=== PATIENT | female | born 1990 | race American Indian/Alaskan Native ===

== ENCOUNTER 2018-09-14 23:59 | Day surgery (SDC) | payer SELFPAY ==
[2018-09-15] MEDS ORDERED: HYDROmorphone 1 MG/ML Syringe IM ONE (00:43)
[2018-09-15] MEDS ORDERED: Sodium Chloride 0.9% 10 ML Syringe FLUSH PRN (00:44)
[2018-09-15] MEDS ORDERED: HYDROmorphone 1 MG/ML Syringe IVPUSH ONE ×3 (00:51→07:26)
[2018-09-15] MEDS ORDERED: Lidocaine 1% 50 ML MDV INJECT STA (02:24)
[2018-09-15] MEDS ORDERED: Lidocaine 1% with EPINEPHrine 1:100,000 20 ML MDV INJECT ONE (04:06)
[2018-09-15] MEDS ORDERED: Metoclopramide 10 MG/2 ML SDV IVPUSH ONE (07:26)
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
[2018-09-15] MEDS: Lactated Ringers 1,000 ML IV SCH ×2 (07:38→11:51)
[2018-09-15] MEDS ORDERED: Propofol 200 MG/20 ML SDV ONE (09:02)
[2018-09-15] MEDS ORDERED: Ondansetron 4 MG/2 ML SDV ONE (09:02)
[2018-09-15] MEDS ORDERED: Midazolam 1 MG/ML 2 ML SDV ONE (09:02)
[2018-09-15] MEDS ORDERED: Lidocaine 1% 4 ML ONE (09:02)
[2018-09-15] MEDS ORDERED: fentaNYL 250 MCG/5 ML SDV ONE (09:02)
[2018-09-15] MEDS ORDERED: Bupivacaine 0.5% 30 ML SDV ONE (09:08)
[2018-09-15] MEDS ORDERED: ceFAZolin 2 GM in Premix Bag 1 BAG IV ONE (09:21)
[2018-09-15] MEDS ORDERED: ceFAZolin 1 GM Vial ONE (09:29)
[2018-09-15] MEDS ORDERED: HYDROmorphone 0.5 MG/0.5 ML Syringe ONE ×2 (09:44→09:45)
[2018-09-15] MEDS ORDERED: Ketorolac 30 MG/ML SDV ONE (09:45)
[2018-09-15] MEDS ORDERED: fentaNYL 100 MCG/2 ML SDV IVPUSH PRN (10:04)
--- NOTE | 2018-09-15 10:05 | PCM.POSTAN ---
POST ANESTHESIA ASSESSMENT - MENTAL STATUS Mental Status: Alert, Oriented - VITAL SIGNS Pulse Rate: 100 SaO2: 98 Resp Rate: 16 Blood Pressure: 121/55 Temperature: 36.9 C - RESPIRATORY Respiratory Status: Respiratory Rate WNL, Airway Patent, O2 Saturation Stable, Supplemental Oxygen - CARDIOVASCULAR CV Status: Pulse Rate WNL, Blood Pressure Stable - GASTROINTESTINAL GI Status: No Symptoms - PAIN Pain Score: 0 - POST OP HYDRATION Hydration Status: Adequate & Stable - OBSERVATIONS Free Text/Narrative:: no anesthesia complications noted
--- NOTE | 2018-09-15 10:06 | PCM.PREANE ---
Preanesthetic Assessment - Anesthesia/Transfusion/Family Hx Anesthesia History: Prior Anesthesia Without Reaction Family History of Anesthesia Reaction: No Transfusion History: No Prior Transfusion(s) - Review of Systems General: Fatigue Pulmonary: No Symptoms Cardiovascular: No Symptoms Gastrointestinal: No Symptoms Neurological: No Symptoms Other: Reports: None (obese) - Physical Assessment NPO Status Date: 09/15/18 NPO Status Time: 00:00 Pulse: 100 O2 Sat by Pulse Oximetry: 98 Respiratory Rate: 16 Blood Pressure: 121/55 Temperature: 36.9 C Vital Signs: Last Vital Signs Temp 36.9 C 09/15/18 10:05 Pulse 100 09/15/18 10:05 Resp 16 09/15/18 10:05 BP 121/55 L 09/15/18 10:05 Pulse Ox 98 09/15/18 10:05 ASA Class: 2E Mental Status: Alert & Oriented x3 Airway Class: Mallampati = 3 Dentition: Reports: Normal Dentition Thyro-Mental Finger Breadths: 3 Mouth Opening Finger Breadths: 3 ROM/Head Extension: Full Lungs: Clear to Auscultation, Normal Respiratory Effort Cardiovascular: Regular Rate, Regular Rhythm - Lab Values: Laboratory Last Values WBC 13.94 K/mm3 (3.98-10.04) H 09/15/18 01:03 RBC 3.80 M/mm3 (3.98-5.22) L 09/15/18 01:03 Hgb 9.9 gm/L (11.2-15.7) L 09/15/18 01:03 Hct 30.8 % (34.1-44.9) L 09/15/18 01:03 MCV 81.1 fl (79.4-94.8) 09/15/18 01:03 MCH 26.1 pg (25.6-32.2) 09/15/18 01:03 MCHC 32.1 g/dl (32.2-35.5) L 09/15/18 01:03 RDW Std Deviation 45.8 fL (36.4-46.3) 09/15/18 01:03 Plt Count 354 K/mm3 (182-369) 09/15/18 01:03 MPV 8.8 fl (9.4-12.3) L 09/15/18 01:03 Neut % (Auto) 74.0 % (34.0-71.1) H 09/15/18 01:03 Lymph % (Auto) 19.9 % (19.3-51.7) 09/15/18 01:03 [place] % (Auto) 5.9 % (4.7-12.5) 09/15/18 01:03 Eos % (Auto) 0 (0.7-5.8) L 09/15/18 01:03 Baso % (Auto) 0.1 % (0.1-1.2) 09/15/18 01:03 Neut # (Auto) 10.32 K/mm3 (1.56-6.13) H 09/15/18 01:03 Lymph # (Auto) 2.77 K/mm3 (1.18-3.74) 09/15/18 01:03 [place] # (Auto) 0.82 K/mm3 (0.24-0.36) H 09/15/18 01:03 Eos # (Auto) 0.00 K/mm3 (0.04-0.36) L 09/15/18 01:03 Baso # (Auto) 0.01 K/mm3 (0.01-0.08) 09/15/18 01:03 Sodium 145 mEq/L (136-145) 09/15/18 01:03 Potassium 3.4 mEq/L (3.5-5.1) L 09/15/18 01:03 Chloride 110 mEq/L (98-107) H 09/15/18 01:03 Carbon Dioxide 20 mEq/L (21-32) L 09/15/18 01:03 Anion Gap 18.4 (5-15) H 09/15/18 01:03 BUN 13 mg/dL (7-18) 09/15/18 01:03 Creatinine 0.7 mg/dL (0.55-1.02) 09/15/18 01:03 Est Cr Clr Drug Dosing TNP 09/15/18 01:03 Estimated GFR (MDRD) > 60 mL/min (>60) 09/15/18 01:03 BUN/Creatinine Ratio 18.6 (14-18) H 09/15/18 01:03 Glucose 90 mg/dL (74-106) 09/15/18 01:03 Calcium 7.6 mg/dL (8.5-10.1) L 09/15/18 01:03 Total Bilirubin 0.4 mg/dL (0.2-1.0) 09/15/18 01:03 AST 15 U/L (15-37) 09/15/18 01:03 ALT 18 U/L (14-59) 09/15/18 01:03 Alkaline Phosphatase 84 U/L (46-116) 09/15/18 01:03 Total Protein 6.8 g/dl (6.4-8.2) 09/15/18 01:03 Albumin 3.3 g/dl (3.4-5.0) L 09/15/18 01:03 Globulin 3.5 gm/dL 09/15/18 01:03 Albumin/Globulin Ratio 0.9 (1-2) L 09/15/18 01:03 - Allergies Allergies/Adverse Reactions: Allergies Allergy/AdvReac Type Severity Reaction Status Date / Time No Known Allergies Allergy Verified 09/15/18 00:46 - Blood Blood Available: No Product(s) Available: None - Anesthesia Plan Pre-Op Medication Ordered: None - Acknowledgements Anesthesia Type Planned: General Anesthesia Pt an Appropriate Candidate for the Planned Anesthesia: Yes Alternatives and Risks of Anesthesia Discussed w Pt/Guardian: Yes Pt/Guardian Understands and Agrees with Anesthesia Plan: Yes PreAnesthesia Questionnaire Psychiatric History: Reports: Anxiety, PTSD, Suicidal Ideation - Past Surgical History GI Surgical History: Reports: Cholecystectomy - SUBSTANCE USE Smoking Status *Q: Never Smoker - HOME MEDS Home Medications: Home Meds . [No Known Home Meds] 09/15/18 [History] - CURRENT (IN HOUSE) MEDS Current Meds: Current Medications Fentanyl (Sublimaze) 50 mcg IVPUSH Q5M PRN PRN Reason: Pain Hydromorphone HCl (Dilaudid) 0.5 mg IVPUSH Q10M PRN PRN Reason: Pain (severe 7-10) Lactated Ringer's (Ringers, Lactated) 1,000 mls @ 125 mls/hr IV ASDIRECTED VENITA Last Admin: 09/15/18 07:38 Dose: 125 mls/hr Sodium Chloride (Saline Flush) 10 ml FLUSH ASDIRECTED PRN PRN Reason: Keep Vein Open Last Admin: 09/15/18 00:52 Dose: 10 ml Discontinued Medications Bupivacaine HCl (Marcaine 0.5%) Confirm Administered Dose 30 ml .ROUTE .STK-MED ONE Stop: 09/15/18 09:09 Cefazolin Sodium (Ancef) Confirm Administered Dose 3 gm .ROUTE .STK-MED ONE Stop: 09/15/18 09:30 Fentanyl (Sublimaze) Confirm Administered Dose 250 mcg .ROUTE .STK-MED ONE Stop: 09/15/18 09:03 Hydromorphone HCl (Dilaudid) 1 mg IVPUSH ONETIME ONE Stop: 09/15/18 00:52 Last Admin: 09/15/18 00:52 Dose: 1 mg Hydromorphone HCl (Dilaudid) 1 mg IVPUSH ONETIME ONE Stop: 09/15/18 03:58 Last Admin: 09/15/18 04:02 Dose: 1 mg Hydromorphone HCl (Dilaudid) 1 mg IVPUSH ONETIME ONE Stop: 09/15/18 07:27 Last Admin: 09/15/18 07:38 Dose: 1 mg Hydromorphone HCl (Dilaudid) Confirm Administered Dose 0.5 mg .ROUTE .STK-MED ONE Stop: 09/15/18 09:45 Hydromorphone HCl (Dilaudid) Confirm Administered Dose 0.5 mg .ROUTE .STK-MED ONE Stop: 09/15/18 09:46 Lidocaine HCl (Xylocaine-Mpf 1%) Confirm Administered Dose 4 mls @ as directed .ROUTE .STK-MED ONE Stop: 09/15/18 09:03 Cefazolin Sodium/Dextrose 2 gm (/ Premix) 50 mls @ 100 mls/hr IV ONETIME ONE Stop: 09/15/18 09:50 Ketorolac Tromethamine (Toradol) Confirm Administered Dose 30 mg .ROUTE .STK- MED ONE Stop: 09/15/18 09:46 Lidocaine HCl (Xylocaine 1%) 50 ml INJECT NOW STA Stop: 09/15/18 02:25 Last Admin: 09/15/18 02:50 Dose: 50 ml Lidocaine/Epinephrine (Xylocaine 1% With Epinephrine 1:100,000) 20 ml INJECT ONETIME ONE Stop: 09/15/18 04:07 Last Admin: 09/15/18 04:59 Dose: 20 ml Metoclopramide HCl (Reglan) 10 mg IVPUSH ONETIME ONE Stop: 09/15/18 07:27 Last Admin: 09/15/18 07:38 Dose: 10 mg Midazolam HCl (Versed 1 Mg/Ml) Confirm Administered Dose 2 mg .ROUTE .STK-MED ONE Stop: 09/15/18 09:03 Ondansetron HCl (Zofran) Confirm Administered Dose 4 mg .ROUTE .STK-MED ONE Stop: 09/15/18 09:03 Propofol (Diprivan 20 Ml) Confirm Administered Dose 200 mg .ROUTE .STK-MED ONE Stop: 09/15/18 09:03
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
--- NOTE | 2018-09-15 10:17 | CR ---
Left forearm: Single fluoroscopic spot view was obtained utilizing C-arm device. Comparison: Previous left forearm study performed earlier on the same day (3:45 AM). Previous foreign body within the proximal soft tissues of the forearm is not definitely appreciated on current exam although there is a thick metal rosanne overlying this area which obscures a small portion of the soft tissues. No gross bony abnormality is seen. Fluoroscopy time is given as 11.9 seconds. Impression: 1. Findings as noted above. Diagnostic code #2
[2018-09-15] MEDS: HYDROmorphone 0.5 MG/0.5 ML Syringe IVPUSH PRN ×2 (10:21→10:49)
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
[2018-09-15] MEDS ORDERED: Acetaminophen/HYDROcodone 325-5 MG Tab PO PRN (11:02)
--- NOTE | 2018-09-15 13:54 | CT ---
CT thoracic spine Technique: Multiple axial sections through the thoracic spine were obtained. Reconstructed coronal and sagittal images were reviewed. Comparison: No prior thoracic spine imaging. Findings: Mild motion artifact is noted within the upper thoracic spine. Details are also somewhat decreased due to photon attenuation from the patient's body habitus. Vertebral body heights and disc spaces are maintained. No discrete fracture is appreciated. Posterior discs are not well seen to make further comment. Very minimal osteophytes are noted off the endplates within the lower thoracic spine. No abnormal subluxation is seen. No central canal stenosis or neural foraminal stenosis is seen. Impression: 1. Slightly limited study due to motion as well as photon attenuation from patient body habitus. Within this limitation, minimal endplate osteophytes are seen within the lower thoracic spine. Nothing acute is definitely appreciated on CT study of the thoracic spine. Diagnostic code #2 I agree with preliminary report from [facility], finalized on 09/15/18, 3:25 AM Central Time
--- NOTE | 2018-09-15 13:54 | CT ---
CT cervical spine Technique: Multiple axial sections were obtained from above C1 inferiorly below T1. Reconstructed sagittal and coronal images were reviewed. Findings: Mild motion artifact is seen. Photon attenuation is noted from the patient's body habitus. Both these findings slightly diminish details. Findings: Vertebral body heights and disc spaces are maintained. No fracture is grossly seen. No bony central or bony neural foraminal stenosis is noted. No abnormal subluxation is seen. Impression: 1. Slightly limited study as noted above. Nothing acute is definitely seen. Diagnostic code #2 I agree with preliminary report from [facility], finalized on 09/15/18, 3:25 AM Central Time
--- NOTE | 2018-09-15 13:54 | CT ---
Head CT Technique: Multiple axial sections through the brain were obtained. Intravenous contrast was not utilized. Comparison: No prior intracranial imaging. Findings: Ventricles along with basal cisterns and sulci over the convexities are within normal limits. Slightly prominent cisterna magna is incidentally noted. No abnormal parenchymal densities are seen. No evidence of intracranial hemorrhage. No midline shift or mass effect is seen. Visualized sinuses are clear. No acute calvarial abnormality is seen. Impression: 1. Nothing acute is appreciated on noncontrast head CT study. Diagnostic code #1 I agree with preliminary report from [facility], finalized on 09/15/18, 3:24 AM Central Time
--- NOTE | 2018-09-15 13:54 | CR ---
Left forearm: Two views of the left forearm were obtained. 2.3 cm foreign body projected within the anterior and medial soft tissues of the upper forearm. Diffuse soft tissue air is seen. No acute bony abnormality is identified. Impression: 1. Foreign body as described above. Soft tissue air. 2. No acute bony abnormality is seen. Diagnostic code #3
--- NOTE | 2018-09-15 13:54 | CR ---
Chest: Two views of the chest were obtained. Comparison: No prior chest x-ray. Heart size and mediastinum are within normal limits. Lungs are clear. Bony structures are within normal limits. Impression: 1. Nothing acute is appreciated on two-view chest x-ray. Diagnostic code #1
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
== END 2018-09-15 | disposition home or self-care (01) ==
LOC: JD.ED 23:59 → JD.SDS 09-15 09:31
PROVIDERS: ATTEND Surgery
DX: S51.842A Puncture wound with foreign body of left forearm, initial encounter (principal); F41.9 Anxiety disorder, unspecified; F43.10 Post-traumatic stress disorder, unspecified; Y35.091A Legal intervention involving other firearm discharge, law enforcement official injured, initial encounter
CPT/HCPCS: 20103; 36415; 70450; 71046; 72125; 72128; 73090; 76000; 80053; 85025; A9270; J0690; J1170; J1885; J2250; J2405; J2704; J2765; J3010; J3490; J7120; J2001